=== PATIENT | female | born 1940 | race Caucasian/White ===

== ENCOUNTER → 2018-02-17 | Outpatient (CLI) | payer MEDICARE ==
[2018-02-17 16:44] LABS: HEMOGLOBIN A1C 6.1 % (4.2-6.3)
== END | disposition home or self-care (01) ==
LOC: CFH 15:09
PROVIDERS: ATTEND Orthopaedic Surgery
DX: M16.12 Unilateral primary osteoarthritis, left hip (principal)
CPT/HCPCS: 36415; 83036; 85651; 86140